=== PATIENT | female | born 1995 | race Caucasian/White ===

== ENCOUNTER 2018-07-07 15:04 | Emergency (ER) | payer OTHER ==
[2018-07-07 15:19] VITALS: BP 103/59; PULSE 73; TEMP 99.1; BMI 18.5
--- NOTE | 2018-07-07 15:42 | PDOC ---
History of Present Illness - General Chief Complaint: Back Pain Stated Complaint: BACK PAIN Time Seen by Provider: 07/07/18 15:32 - History of Present Illness Initial Comments: 22 year old female with no PMH presenting with urinary frequency, and right lower back pain for the past week. She had some urinary burning last week that has since evolved into lower abdominal tenderness with occasional chills and right lower back pain. She did have one episode of sweating last night as well. She has an IUD in place and states that she had unprotected sex with a partner 3 -4 months prior who she suspected may have been unfaithful. Denies nausea, vomiting, diarrhea, discharge, urinary color change, or malodorous quality. 07/07/18 18:43 Past History - Past Medical History Allergies/Adverse Reactions: Allergies Allergy/AdvReac Type Severity Reaction Status Date / Time shrimp Allergy Verified 07/07/18 15:15 Home Medications: Ambulatory Orders Doxycycline Hyclate 100 mg PO BID 14 Days #28 tablet 07/07/18 COPD: No Psychiatric Problems: Yes (anxeity,depression) - Immunization History Immunization Up to Date: Yes - Suicide/Smoking/Psychosocial Hx Smoking Status: No Smoking History: Never smoked Have you smoked in the past 12 months: No Number of Cigarettes Smoked Daily: 0 Hx Alcohol Use: No Drug/Substance Use Hx: No Substance Use Type: None Review of Systems - Review of Systems Constitutional: Yes: Chills. No: Diaphoresis, Fever, Loss of Appetite HEENTM: No: Blurred Vision, Tearing Respiratory: No: Cough, Orthopnea, Shortness of Breath, Stridor, Wheezing Cardiac (ROS): No: Edema, Irregular Heart Rate, Syncope, Chest Tightness ABD/GI: No: Diarrhea, Nausea, Vomiting : Yes: Dysuria, Frequency, Pain. No: Discharge, Hematuria, Incontinence Musculoskeletal: No: Joint Pain, Joint Swelling Integumentary: No: Bruising, Lesions, Pruritus, Rash Neurological: No: Headache, Numbness, Paresthesia, Tingling, Tremors Psychiatric: No: Anxiety, Depression Endocrine: Yes: Excessive Sweating. No: Flushing, Intolerance to Cold, Intolerance to Heat Hematologic/Lymphatic: No: Anemia, Blood Clots, Easy Bleeding, Easy Bruising *Physical Exam - Vital Signs Last Vital Signs Temp Pulse Resp BP Pulse Ox 99.1 F 73 18 103/59 L 98 07/07/18 15:11 07/07/18 15:11 07/07/18 15:11 07/07/18 15:11 07/07/18 15:11 - Physical Exam General Appearance: Yes: Nourished, Appropriately Dressed. No: Apparent Distress HEENT: positive: EOMI, CHECO, Normal ENT Inspection, Normal Voice Neck: positive: Trachea midline, Normal Thyroid, Supple. negative: Tender, Rigid Respiratory/Chest: positive: Lungs Clear, Normal Breath Sounds. negative: Chest Tender, Respiratory Distress Cardiovascular: positive: Regular Rhythm, Regular Rate Female Pelvic Exam: positive: normal external exam, cervical os closed, normal adnexa, normal size ovaries, discharge (scant white discharge, non-malodorous). negative: CMT Gastrointestinal/Abdominal: positive: Normal Bowel Sounds, Tender (suprapubic tendernes/ lower abdominal tenderness), Flat, Soft Lymphatic: negative: Adenopathy, Tenderness Musculoskeletal: positive: Normal Inspection. negative: Decreased Range of Motion Extremity: positive: Normal Capillary Refill, Normal Inspection, Normal Range of Motion. negative: Tender Integumentary: positive: Normal Color, Dry, Warm Neurologic: positive: Fully Oriented, Alert, Normal Mood/Affect, Normal Response , Motor Strength 5/5 Medical Decision Making - Medical Decision Making 22 year old female with history of unprotected sex a few months prior and IUD in lace with suprapubic pain and right mid thoracic pain. VSS with slightly elevated temp to 99.1. Although pelvic exam was benign/ uconcerning, UA was negative and over all presentation concerning for PID. Given ceftriaxone and doxy ted signed out to Dr. Solitario pending TVUS and abdominal CT to rule out right nephrolithiasis/ pyelonephritis. 07/07/18 19:39 *DC/Admit/Observation/Transfer Diagnosis at time of Disposition: PID (acute pelvic inflammatory disease) - Prescriptions Prescriptions: Doxycycline Hyclate 100 mg PO BID 14 Days #28 tablet - Referrals Referrals: Ashley Chappell [Primary Care Provider] - - Patient Instructions - Post Discharge Activity
[2018-07-07 18:00] LABS: URINE APPEARANCE CLEAR; URINE BILIRUBIN NEGATIVE (<2.0 mg/dL); URINE COLOR YELLOW; URINE GLUCOSE (UA) NEGATIVE (NEGATIVE); URINE KETONE NEGATIVE (NEGATIVE); URINE LEUK ESTERASE NEGATIVE (NEGATIVE); URINE NITRITE NEGATIVE (NEGATIVE); URINE PROTEIN NEGATIVE (NEGATIVE); URINE UROBILINOGEN NEGATIVE mg/dL (0.2-1.0)
[2018-07-07] MEDS ORDERED: DOXYCYCLINE HYCLATE 100 MG CAPSULE PO ONE ×2 (18:17→18:52)
--- NOTE | 2018-07-07 19:00 | PDOC ---
Attending Attestation - Resident Resident Name: Edd Martines - ED Attending Attestation I have performed the following: I have examined & evaluated the patient, The case was reviewed & discussed with the resident, I agree w/resident's findings & plan, Exceptions are as noted - HPI HPI: 07/07/18 18:53 The patient is a 22 year old female with no significant PMH who presents to the emergency department with 1 week history of frequency and dysuria and now one day of R sided flank pain. Patient also reported associated suprapubic pain. Patient had unprotected sexual intercourse 4 months ago with intermittent white vaginal DC. Patient denies any history of STDs. At this time, pt reports no flank pain and only suprapubic pain. Pt has IUD. The patient denies chest pain, shortness of breath, headache and dizziness. Denies fever, chills, nausea, vomit, diarrhea and constipation. Denies urgency and hematuria. Allergies: NKA Past surgical history: None reported. Social history: No reported alcohol, drug, or cigarette use. PCP: Dr. Chappell - Physicial Exam PE: 07/07/18 18:55 GENERAL: Awake, alert, and fully oriented, in no acute distress. Well appearing EYES: Sclera anicteric, conjunctiva clear ENT: Moist mucosa LUNGS: Breath sounds equal, clear to auscultation bilaterally. No wheezes, and no crackles HEART: Regular rate and rhythm, normal S1 and S2, no murmurs, rubs or gallops ABDOMEN: Soft, nontender, nondistended, normoactive bowel sounds. No guarding, no rebound. No masses. Mild R sided CVAT PELVIC: as per Dr. Martines's note EXTREMITIES: Normal range of motion, no edema. No erythema, or tenderness NEUROLOGICAL: Normal speech, cranial nerves intact, 5/5 strength in all 4 extremities, normal sensation to light touch in all 4 extremities, normal gait SKIN: Warm, Dry, normal turgor, no rashes or lesions noted. - Medical Decision Making 07/07/18 18:57 22yo F presents to the ED with dysuria, frequency, suprapubic pain and flank pain (now resolved). UA neg for infection. Pelvic by Dr. Martines with white discharge. In light of unprotected sexual encounter 4mo ago, GC/CT sent, will treat empirically. DDx includes renal colic vs TOA, vs PID vs migration of IUD. Labs, TVUS, CTAP noncon pending. Case signed out to overnight attending for f/u diagnostics, reassessment, and dispo.
--- NOTE | 2018-07-07 19:07 | PDOC ---
*Physical Exam - Vital Signs Last Vital Signs Temp Pulse Resp BP Pulse Ox 99.1 F 73 18 103/59 L 98 07/07/18 15:11 07/07/18 15:11 07/07/18 15:11 07/07/18 15:11 07/07/18 15:11 ED Treatment Course - LABORATORY CBC & Chemistry Diagram: 07/07/18 20:00 07/07/18 20:00 - ADDITIONAL ORDERS Additional order review: Laboratory Results 07/07/18 07/07/18 16:10 15:19 Urine Color Yellow Urine Appearance Clear Urine pH 7.0 D Ur Specific [place] 1.025 Urine Protein Negative Urine Glucose (UA) Negative Urine Ketones Negative Urine Blood Negative Urine Nitrite Negative Urine Bilirubin Negative Urine Urobilinogen Negative Ur Leukocyte Esterase Negative Urine HCG, Qual Negative - Medications Given in the ED: ED Medications Discontinued Medications Generic Name Dose Route Start Last Admin Trade Name Freq PRN Reason Stop Dose Admin Doxycycline Hyclate 100 mg 07/07/18 18:17 07/07/18 18:52 Vibramycin - PO 07/07/18 18:18 100 mg ONCE ONE Administration Medical Decision Making - Medical Decision Making 07/07/18 19:06 I received sign out on this patient from Dr. Martines. I will assume care for the patient while she is in the Emergency Department. 22 year old female presented to ED complaining of dysuria, right flank pain, suprapubic pain x1 week. Dr. Martines stated her pelvic examination showed no CMT, no adnexal tenderness. Dr. Martines stated her abdominal examination was significant for suprapubic tenderness. My examination: General - well appearing, ambulating without assistance. Heart - regular rhythm, no murmurs. Lungs - clear to auscultation. Abdomen - soft, flat. tenderness to palpation of RLQ. Urine Test Results Urine Color Yellow 07/07/18 16:10 Urine Appearance Clear 07/07/18 16:10 Urine pH 7.0 (5.0-8.0) D 07/07/18 16:10 Ur Specific [place] 1.025 (1.010-1.035) 07/07/18 16:10 Urine Protein Negative (NEGATIVE) 07/07/18 16:10 Urine Glucose (UA) Negative (NEGATIVE) 07/07/18 16:10 Urine Ketones Negative (NEGATIVE) 07/07/18 16:10 Urine Blood Negative (NEGATIVE) 07/07/18 16:10 Urine Nitrite Negative (NEGATIVE) 07/07/18 16:10 Urine Bilirubin Negative (<2.0 mg/dL) 07/07/18 16:10 Ur Leukocyte Esterase Negative (NEGATIVE) 07/07/18 16:10 No evidence of urinary tract infection. - Pt was treated for Gonorrhea, Chlamydia Urine test negative. Pending CT to R/O nephrolithiasis. Pending TVUS to R/O tubovarian abscess, ovarian cyst. 07/07/18 20:25 CT A/P report - fecal retention. no evidence of intra-abdominal pathology. 07/07/18 20:43 TVUS report - IUD identified in uterus, otherwise normal. no ovarian masses. 07/07/18 21:00 Pt examined, tenderness to RLQ. 07/07/18 21:55 Pt will be discharged with prescription for doxycycline for treatment of suspected PID. I discussed the results with the patient, she stated she understood. I discussed the importance of following up with her primary care doctor and OBGYN, she stated she understood. I discussed the return precautions with the patient, she stated she understood. *DC/Admit/Observation/Transfer Diagnosis at time of Disposition: Suprapubic pain - Discharge Dispostion Disposition: HOME Condition at time of disposition: Stable Decision to Admit order: No - Prescriptions Prescriptions: Doxycycline Hyclate 100 mg PO BID 14 Days #28 tablet - Referrals Referrals: Ashley Chappell [Primary Care Provider] - - Patient Instructions Printed Discharge Instructions: DI for Pelvic Inflammatory Disease Additional Instructions: You were seen today for pain and burning with urination. Your lab work was normal. Your urine test was negative. Your urine analysis was normal. Your ultrasound showed an IUD, but was otherwise normal. Your CT scan was normal. I am going to treat you for suspected pelvic inflammatory disease. - I have sent a prescription to your pharmacy for an antibiotic. Pick it up as soon as possible and take as advised on label. - Take an over the counter pro-biotic to help avoid antibiotic associated diarrhea/yeast infections Take Motrin over the counter for your pain. Follow up with your primary care doctor within 2 days. Call their office tomorrow morning and make an appointment for as soon as available. Your care is not complete until you follow up. Follow up with your OBGYN within 2 days. Call their office tomorrow morning and make an appointment for as soon as available. Your care is not complete until you follow up. Return to the Emergency Department for increasing pain, vaginal bleeding, fever , chills, nausea, vomiting, lightheadedness, passing out, chest pain, shortness of breath, ill-appearance or any other new, worsening or concerning symptoms. - Post Discharge Activity
[2018-07-07 20:49] LABS: BASO % 0.5 % (0-2.0); EOS % 4.7 % (0-4.5); HEMOGLOBIN 13.2 GM/dL (10.7-15.3); LYMPH % 38.5 % (8-40); MCH 31.6 pg (25.7-33.7); MCHC 32.9 g/dl (32.0-36.0); MEAN CELL VOLUME 96.1 fl (80-96); MEAN PLT VOLUME 8.7 fl (7.5-11.1); MONO % 9.2 % (3.8-10.2); NEUT % 47.1 % (42.8-82.8); PLATELET COUNT 223 K/MM3 (134-434); RBC 4.17 M/mm3 (3.60-5.2); RDW 12.7 % (11.6-15.6); WHITE BLOOD COUNT 6.1 K/mm3 (4.0-10.0)
[2018-07-07 21:13] LABS: ALBUMIN 3.8 g/dl (3.4-5.0); ALK PHOS 76 U/L (45-117); ANION GAP 6 MMOL/L (8-16); BILIRUBIN,TOTAL 0.4 mg/dL (0.2-1); BLOOD UREA NITROGEN 13 mg/dL (7-18); CALCIUM 8.5 mg/dL (8.5-10.1); CHLORIDE 109 mmol/L (98-107); CO2 25 mmol/L (21-32); CREATININE 0.7 mg/dL (0.55-1.3); GLUCOSE,RANDOM 78 mg/dL (74-106); SGOT/AST 12 U/L (15-37); SGPT/ALT 16 U/L (13-61); SODIUM 140 mmol/L (136-145); TOT PROT 7.6 g/dl (6.4-8.2)
[2018-07-07] MEDS ORDERED: LIDOCAINE HCL 1%, 10 MG/ML (20ML VIAL) ONE (21:19)
== END 2018-07-07 22:30 | disposition home or self-care (01) ==
LOC: JER 15:04
DX: N73.9 Female pelvic inflammatory disease, unspecified (principal)
CPT/HCPCS: 36415; 74176-TC; 76830-TC; 80053; 81003; 84703; 85025; 87086; 87491; 87591; 99282-25

== ENCOUNTER 2021-12-04 21:31 | Emergency (ER) | payer OTHER ==
[2021-12-04 21:49] VITALS: BP 131/77; PULSE 85; TEMP 97.8; BMI 19.0
[2021-12-05] MEDS ORDERED: KETOROLAC TROMETHAMINE 30 MG/1 ML VIAL IVPUSH ONE (00:11)
[2021-12-05] MEDS ORDERED: SODIUM CHLORIDE 0.9% 500 ML INFUS.BAG IV ONE (00:13)
[2021-12-05] MEDS ORDERED: KETOROLAC TROMETHAMINE 30 MG/1 ML VIAL ONE (00:26)
[2021-12-05 00:51] LABS: BASO % 0.5 % (0-2.0); EOS % 5.5 % (0-4.5); HEMATOCRIT 37.6 % (32.4-45.2); HEMOGLOBIN 12.8 GM/dL (10.7-15.3); LYMPH % 39.7 % (8-40); MCHC 34.2 g/dl (32.0-36.0); MEAN CELL VOLUME 96.7 fl (80-96); MEAN PLT VOLUME 7.9 fl (7.5-11.1); MONO % 11.6 % (3.8-10.2); NEUT % 42.7 % (42.8-82.8); PLATELET COUNT 219 10^3/uL (134-434); RBC 3.89 M/mm3 (3.60-5.2); RDW 12.8 % (11.6-15.6); WHITE BLOOD COUNT 5.8 K/mm3 (4.0-10.0)
[2021-12-05 01:13] LABS: CALCIUM 8.6 mg/dL (8.5-10.1)
[2021-12-05 01:14] LABS: ALBUMIN 3.8 g/dl (3.4-5.0); BLOOD UREA NITROGEN 6.6 mg/dL (7-18)
[2021-12-05 01:17] LABS: CREATININE 0.7 mg/dL (0.55-1.3)
[2021-12-05 01:18] LABS: BILIRUBIN,TOTAL 0.2 mg/dL (0.2-1)
[2021-12-05 01:19] LABS: TOT PROT 7.1 g/dl (6.4-8.2)
[2021-12-05 03:10] LABS: PH,URINE 7.5 (5.0-8.0); URINE APPEARANCE CLEAR; URINE BILIRUBIN NEGATIVE (NEGATIVE); URINE COLOR YELLOW; URINE GLUCOSE (UA) NEGATIVE (NEGATIVE); URINE KETONE NEGATIVE (NEGATIVE); URINE LEUK ESTERASE NEGATIVE (NEGATIVE); URINE NITRITE NEGATIVE (NEGATIVE); URINE PROTEIN NEGATIVE (NEGATIVE); URINE UROBILINOGEN 0.2 mg/dL (0.2-1.0)
== END 2021-12-05 05:23 | disposition home or self-care (01) ==
LOC: JER 21:31
PROC: 3E0333Z Introduction of Anti-inflammatory into Peripheral Vein, Percutaneous Approach (ICD-10-PCS; principal; 2021-12-04)
DX: R10.31 Right lower quadrant pain (principal)
CPT/HCPCS: 36415; 74177-TC; 76830-TC; 80053; 81003; 84703; 85025; 87086; 87491; 87591; 99285-25